=== PATIENT | female | born 1995 | race African-American/Black ===

== ENCOUNTER 2016-10-03 13:24 | Emergency (ER) | payer OTHER ==
[~2016-10-03] VITALS: Ht 172.7 cm; Wt 65.8 kg
[~2016-10-03 13:24] MED LIST: HYDR-971 PO; NAPR550T3 PO; PNV1TABL25 PO
[2016-10-03 13:45] VITALS: BP 117/36
--- NOTE | 2016-10-03 14:21 | PHYS DOC ---
Past Medical History Past Medical History: No Pertinent History Past Surgical History: No Surgical History Smoking: Less than 1pk/day Alcohol Use: None Drug Use: None Adult General Chief Complaint Chief Complaint: KNEE INJURY HPI HPI Patient is a 21 year old female who presents with left knee pain after fall 3 days ago. She states that she was going down the stairs, tripped, and fell down approximately 5 steps. She is ambulatory with pain. She denies any other injuries. Her PCP is Dr. Swanson. Review of Systems Review of Systems Constitutional: Denies fever or chills. [] Musculoskeletal: Denies back pain. Reports left knee pain. Integument: Denies rash or skin lesions. [] Neurologic: Denies headache, focal weakness or sensory changes. Denies loss of consciousness. Allergies Allergies Allergies Coded Allergies Type Severity Reaction Last Updated Verified No Known Drug Allergies 12/01/13 No Physical Exam Physical Exam Constitutional: Well developed, well nourished, no acute distress, non-toxic appearance. [] HENT: Normocephalic, atraumatic, oropharynx moist. [] Eyes: PERRLA, EOMI, conjunctiva normal, no discharge. [] Skin: Warm, dry, no erythema, no rash. There is no laceration, abrasion, ecchymosis, or other external sign of injury. Extremities: Posterior and medial left knee tenderness, ROM intact, no edema. Distal pulses equal bilaterally. Neurovascularly intact distally. Neurologic: Alert and oriented X 3, normal motor function, normal sensory function, no focal deficits noted. [] Psychologic: Affect normal, judgement normal, mood normal. [] Current Patient Data Vital Signs Vital Signs Date Time Temp Pulse Resp B/P Pulse Ox O2 Delivery O2 Flow Rate FiO2 10/03/16 13:45 99 86 16 117/36 99 Room Air 99.0 EKG EKG [] Radiology/Procedures Radiology/Procedures REASON: fall 3d ago PROCEDURE: KNEE LEFT 4V EXAM: Left knee, 3 views. HISTORY: Pain. COMPARISON: None. FINDINGS: Frontal, lateral and oblique views of the left knee are obtained. There is no fracture, dislocation or subluxation. No effusion is seen. IMPRESSION: No acute osseous finding. Course & Med Decision Making Course & Med Decision Making Pertinent Labs and Imaging studies reviewed. (See chart for details) The patient presents with left knee pain after falling 3 days ago. On exam, she has tenderness of the left posterior knee without swelling. She is neurovascularly intact. Xray does not show any acute abnormalities. She is discharged home with an Max wrap. She is given a prescription for Naproxen. She is provided with contact information for orthopedics for follow up. Return precautions were discussed. She verbalizes understanding and agrees with plan. Dragon Disclaimer Dragon Disclaimer This electronic medical record was generated, in whole or in part, using a voice recognition dictation system. Departure Departure Impression: Primary Impression: Knee pain, left Disposition: HOME, SELF-CARE Condition: STABLE Referrals: NAVJOT SWANSON MD (PCP) CAROL RUIZ MD Patient Instructions: Knee Pain, [id number], Knee Wraps (Elastic Bandage) and RICE Additional Instructions: Your xray did not show any broken bones or dislocations. Please wear the provided Max wrap as needed for support. Please follow up with the orthopedic doctor listed below if your pain continues. Return to the emergency department if you have any new or concerning symptoms. Scripts Naproxen (Naprosyn)500 Mg Tablet1 Tab PO BID #20 TAB Prov:HARRISON JARA 10/03/16 Problem Qualifiers Primary Impression: Knee pain, left Chronicity: acute Qualified Code: M25.562 - Pain in left knee HARRISON JARA Oct 03, 2016 14:20
--- NOTE | 2016-10-03 14:32 | RAD ---
EXAM: Left knee, 3 views. HISTORY: Pain. COMPARISON: None. FINDINGS: Frontal, lateral and oblique views of the left knee are obtained. There is no fracture, dislocation or subluxation. No effusion is seen. IMPRESSION: No acute osseous finding.
[2016-10-03] MEDS ORDERED: NAPR500T PO (15:25)
== END 2016-10-03 15:37 | disposition home or self-care (01) ==
LOC: ER 13:24
DX: M25.562 Pain in left knee (principal); F17.200 Nicotine dependence, unspecified, uncomplicated; W10.9XXA Fall (on) (from) unspecified stairs and steps, initial encounter; Y93.89 Activity, other specified; Y92.89 Other specified places as the place of occurrence of the external cause; Y99.8 Other external cause status
CPT/HCPCS: 73564; 99284

== ENCOUNTER 2016-10-30 15:46 | Emergency (ER) | payer OTHER ==
[~2016-10-30] VITALS: Ht 172.7 cm; Wt 65.8 kg
[~2016-10-30 15:46] MED LIST changes: +NAPR500T PO
[2016-10-30] MEDS ORDERED: IV NORMAL SALINE 1000ML BAG 1,000 ML IV SCH (16:02)
--- NOTE | 2016-10-30 16:27 | PHYS DOC ---
Past Medical History Past Medical History: No Pertinent History Past Surgical History: No Surgical History Alcohol Use: None Drug Use: None Adult General Chief Complaint Chief Complaint: SYNCOPE HPI HPI Patient is a 21 year old -Taj[place] female who presents with syncopal episode. She states she was at work she has any new drink much all day today and also started feeling dizzy and felt like she had tunnel vision and then passed out for a few seconds. She denies injuring herself. She says she felt somewhat nauseated but now she feels completely fine. She denies any fevers chills nausea vomiting shortness of breath or other concerns at this time. She states she's never had a syncopal episode before. Review of Systems Review of Systems Constitutional: Denies fever or chills [] Eyes: Denies change in visual acuity, redness, or eye pain [] HENT: Denies nasal congestion or sore throat [] Respiratory: Denies cough or shortness of breath [] Cardiovascular: No additional information not addressed in HPI [] GI: Denies abdominal pain, nausea, vomiting, bloody stools or diarrhea [] : Denies dysuria or hematuria [] Musculoskeletal: Denies back pain or joint pain [] Integument: Denies rash or skin lesions [] Neurologic: Denies headache, focal weakness or sensory changes [] Endocrine: Denies polyuria or polydipsia [] Current Medications Current Medications Current Medications Medications (Trade) Dose Ordered Sig/Leti Start Time Stop Time Status Last Admin Dose Admin Sodium Chloride (Iv Sodium Chloride 0.9% 1000ml Bag) 1,000 ml @ 1,000 mls/hr Q1H 10/30/16 16:02 10/30/16 17:01 DC 10/30/16 16:35 1,000 MLS/HR Allergies Allergies Allergies Coded Allergies Type Severity Reaction Last Updated Verified No Known Drug Allergies 12/01/13 No Physical Exam Physical Exam Constitutional: Well developed, well nourished, no acute distress, non-toxic appearance. [] HENT: Normocephalic, atraumatic, bilateral external ears normal, oropharynx moist, no oral exudates, nose normal. [] Eyes: PERRLA, EOMI, conjunctiva normal, no discharge. [] Neck: Normal range of motion, no tenderness, supple, no stridor. [] Cardiovascular:Heart rate regular rhythm, no murmur [] Lungs & Thorax: Bilateral breath sounds clear to auscultation [] Abdomen: Bowel sounds normal, soft, no tenderness, no masses, no pulsatile masses. [] Skin: Warm, dry, no erythema, no rash. [] Back: No tenderness, no CVA tenderness. [] Extremities: No tenderness, no cyanosis, no clubbing, ROM intact, no edema. [] Neurologic: Alert and oriented X 3, normal motor function, normal sensory function, no focal deficits noted. [] Psychologic: Affect normal, judgement normal, mood normal. [] Current Patient Data Vital Signs Vital Signs Date Time Temp Pulse Resp B/P Pulse Ox O2 Delivery O2 Flow Rate FiO2 10/30/16 16:46 85 18 160/117 100 Room Air 10/30/16 15:53 97.9 97.9 Lab Values Laboratory Tests Test 10/30/16 15:29 10/30/16 16:10 10/30/16 16:15 POC Urine HCG, Qualitative Hcg negative (Negative) Urine Collection Type Unknown Urine Color Yellow Urine Clarity Cloudy Urine pH 7.0 Urine Specific [place] 1.020 Urine Protein 100mg/dL (NEG-TRACE) Urine Glucose (UA) Negativemg/dL (NEG) Urine Ketones (Stick) Negativemg/dL (NEG) Urine Blood Negative (NEG) Urine Nitrite Negative (NEG) Urine Bilirubin Negative (NEG) Urine Urobilinogen Dipstick 1.0mg/dL (0.2 mg/dL) Urine Leukocyte Esterase Small (NEG) Urine RBC 0/HPF (0-2) Urine WBC 11-20/HPF (0-4) Urine Squamous Epithelial Cells Many/LPF Urine Bacteria Moderate/HPF (0-FEW) Urine Mucus Marked/LPF Urine Opiates Screen Neg (NEG) Urine Methadone Screen Neg (NEG) Urine Barbiturates Neg (NEG) Urine Phencyclidine Screen Neg (NEG) Urine Amphetamine/Methamphetamine Neg (NEG) Urine Benzodiazepines Screen Neg (NEG) Urine Cocaine Screen Neg (NEG) Urine Cannabinoids Screen Pos (NEG) Urine Ethyl Alcohol Neg (NEG) White Blood Count 6.9x10^3/uL (4.0-11.0) Red Blood Count 4.45x10^6/uL (3.50-5.40) Hemoglobin 13.9g/dL (12.0-15.5) Hematocrit 41.8% (36.0-47.0) Mean Corpuscular Volume 94fL (79-100) Mean Corpuscular Hemoglobin 31pg (25-35) Mean Corpuscular Hemoglobin Concent 33g/dL (31-37) Red Cell Distribution Width 14.7% (11.5-14.5) H Platelet Count 227x10^3/uL (140-400) Neutrophils (%) (Auto) 44% (31-73) Lymphocytes (%) (Auto) 48% (24-48) Monocytes (%) (Auto) 7% (0-9) Eosinophils (%) (Auto) 1% (0-3) Basophils (%) (Auto) 0% (0-3) Neutrophils # (Auto) 3.1x10^3uL (1.8-7.7) Lymphocytes # (Auto) 3.3x10^3/uL (1.0-4.8) Monocytes # (Auto) 0.5x10^3/uL (0.0-1.1) Eosinophils # (Auto) 0.1x10^3/uL (0.0-0.7) Basophils # (Auto) 0.0x10^3/uL (0.0-0.2) Magnesium Level 2.0mg/dL (1.8-2.4) Total Bilirubin 0.9mg/dL (0.2-1.0) Direct Bilirubin 0.2mg/dL (0.0-0.2) Aspartate Amino Transferase (AST) 17U/L (15-37) Alanine Aminotransferase (ALT) 22U/L (14-59) Alkaline Phosphatase 73U/L (46-116) Creatine Kinase 94U/L (26-192) Creatine Kinase MB (Mass) 0.7ng/mL (0.0-3.6) Creatine Kinase MB Relative Index 0.7% (0-4) Troponin I Quantitative < 0.017ng/mL (0.000-0.055) ZY-Had-Y-Type Natriuretic Peptide 19pg/mL (0-124) Total Protein 6.8g/dL (6.4-8.2) Albumin 3.6g/dL (3.4-5.0) Thyroid Stimulating Hormone (TSH) 1.707uIU/mL (0.358-3.74) Serum Test, Qualitative Negative (NEG) Laboratory Tests 10/30/16 16:15 EKG EKG EKG shows sinus rhythm with rate of [address] elevations or T-wave inversions, normal axis, QTC 44 ms, as interpreted by me. Radiology/Procedures Radiology/Procedures [facility] [address] [place] [address] IMAGING REPORT Signed PATIENT: KIERRA SCHUMACHER ACCOUNT: [id number] : 1995 LOCATION: ER AGE: 21 SEX: F EXAM STATUS: REG ER ORD. PHYSICIAN: JAMIE KOLB MD REASON: syncope/ PREG TEST PROCEDURE: PORTABLE CHEST 1V Exam: AP portable chest. History: Syncope today. Comparison: None. Findings: The heart and mediastinal structures are within normal limits for size. Lungs are without infiltrate. No pneumothorax or pleural effusion is appreciated. Impression: 1. No acute cardiopulmonary process. DICTATED and SIGNED BY: NEGAR LICEA MD DATE: 10/30/161655 CC: JAMIE KOLB MD; UNKNOWN PCP NAME ~ [] Impressions: Syncope Course & Med Decision Making Course & Med Decision Making Pertinent Labs and Imaging studies reviewed. (See chart for details) Labs, urine, ECG, EKG are nonacute. She didn't have any ectopy or any other irregular rhythms on the monitor while being observed within the department. She is being discharged home to follow-up with her primary care physician. Return precautions given she is agreeable to the plan, and being discharged in stable condition. Dragon Disclaimer Dragon Disclaimer This electronic medical record was generated, in whole or in part, using a voice recognition dictation system. Departure Departure Impression: Primary Impression: Syncope Disposition: 01 HOME, SELF-CARE Condition: STABLE Referrals: NAVJOT HENDERSON MD (PCP) Patient Instructions: Syncope, [id number] Additional Instructions: Your labs, EKG and workup in the emergency Department did not show any acute abnormalities. You will need to follow-up with her primary care physician. Return back to ER she developed shortness of breath, chest pain or other concerns. JAMIE KOLB MD Oct 30, 2016 16:27
[2016-10-30 16:38] LABS: BILIRUBIN,URINE NEGATIVE (NEG); GLUCOSE,URINE NEGATIVE (NEG); NITRITE,URINE NEGATIVE (NEG); PROTEIN,URINE 100 mg/dL (NEG-TRACE)
[2016-10-30 16:42] LABS: BASO % 0 % (0-3); EOS % 1 % (0-3); HEMATOCRIT 41.8 % (36.0-47.0); HEMOGLOBIN 13.9 g/dL (12.0-15.5); LYMPH # 3.3 x10^3/uL (1.0-4.8); LYMPH % 48 % (24-48); MEAN CORPUSCULAR HEMOGLOBIN 31 pg (25-35); MEAN CORPUSCULAR HGB CONC 33 g/dL (31-37); MEAN CORPUSCULAR VOLUME 94 fL (79-100); MONO % 7 % (0-9); NEUT % 44 % (31-73); PLATELET COUNT 227 x10^3/uL (140-400); RED BLOOD COUNT 4.45 x10^6/uL (3.50-5.40); RED CELL DISTRIBUTION WIDTH 14.7 % (11.5-14.5); WHITE BLOOD COUNT 6.9 x10^3/uL (4.0-11.0)
[2016-10-30 16:42] LABS: BARBITURATES NEG (NEG); BENZODIAZEPINES NEG (NEG); CANNABINOIDS POS (NEG); COCAINE NEG (NEG); METHADONE NEG (NEG); OPIATES NEG (NEG); PHENCYCLIDINE NEG (NEG)
[2016-10-30 16:43] LABS: ETHANOL, URINE NEG (NEG)
[2016-10-30 16:46] VITALS: BP 160/117
[2016-10-30 16:54] LABS: RBC,URINE 0 /HPF (0-2)
[2016-10-30 16:54] LABS: NEG OBC SER NEG; POS OBC SER POS
[2016-10-30 16:55] LABS: BACTERIA,URINE MODERATE /HPF (0-FEW); SQUAMOUS EPITHELIAL CELL,UR MANY /LPF
[2016-10-30 16:58] LABS: ALBUMIN 3.6 g/dL (3.4-5.0); DIRECT BILIRUBIN 0.2 mg/dL (0.0-0.2); TOTAL BILIRUBIN 0.9 mg/dL (0.2-1.0); TOTAL PROTEIN 6.8 g/dL (6.4-8.2)
--- NOTE | 2016-10-30 16:58 | RAD ---
Exam: AP portable chest. History: Syncope today. Comparison: None. Findings: The heart and mediastinal structures are within normal limits for size. Lungs are without infiltrate. No pneumothorax or pleural effusion is appreciated. Impression: 1. No acute cardiopulmonary process.
[2016-10-30 17:10] LABS: CKMB INDEX 0.7 % (0-4); CKMB MASS 0.7 ng/mL (0.0-3.6)
--- NOTE | 2016-10-30 18:56 | EKG ---
[facility] [address] [place] [address] Test Date: 2016-10-30 Test Time: 16:07:06 Pat Name: KIERRA SCHUMACHER Department: Room: Gender: F Drawing Instructor: : 1995 Requested By: JAMIE KOLB Order Number: [id number] Reading MD: Samuel Garcia Measurements Intervals [place] Rate: 74 P: 55 OK: 172 QRS: 60 QRSD: 74 T: 31 QT: 364 QTc: 404 Interpretive Statements SINUS RHYTHM Electronically Signed On 10-31-2016 8:36:12 CDT by Samuel Garcia
== END 2016-10-30 17:31 | disposition home or self-care (01) ==
LOC: ER 15:46
DX: R55 Syncope and collapse (principal); R11.0 Nausea; H53.489 Generalized contraction of visual field, unspecified eye
CPT/HCPCS: 36415; 71010; 80076; 80305; 81001; 82553; 83735; 83880; 84443; 84484; 84703; 85027; 87086; 93005; 96360; 99285; J7030; 81025; G0481

== ENCOUNTER 2017-06-19 18:07 | Emergency (ER) | payer OTHER ==
[~2017-06-19] VITALS: Ht 172.7 cm; Wt 59.0 kg
[~2017-06-19 18:07] MED LIST changes: +NAPR-677 PO; +NAPR-683 PO; -NAPR500T PO; -NAPR550T3 PO
--- NOTE | 2017-06-19 18:37 | PHYS DOC ---
Past Medical History Past Medical History: No Pertinent History Past Surgical History: No Surgical History Alcohol Use: None Drug Use: None Adult General Chief Complaint Chief Complaint: ABDOMINAL PAIN HPI HPI Patient is a 22 year old female with abdominal pain Pleasant 22-year-old female with abdominal pain for approximately 1 month duration. It is epigastric. It's worse after she eats. Does not radiate through the back. Sometimes she vomits her food afterwards. Currently she is not having any pain. She's not having any nausea. She denies any pain of the right upper quadrant. No pelvic pain. No vaginal bleeding or discharge. No other current symptoms. Past the pain is intermittent, worse with eating, moderate when present. None currently. Review of Systems Review of Systems Constitutional: Denies fever or chills Eyes: Denies change in visual acuity, redness, or eye pain HENT: Denies nasal congestion or sore throat Respiratory: Denies cough or shortness of breath Cardiovascular: No additional information not addressed in HPI GI: No vomiting or diarrhea recently : Denies dysuria or hematuria Musculoskeletal: Denies back pain or joint pain Integument: Denies rash or skin lesions Neurologic: Denies headache, focal weakness or sensory changes Endocrine: Denies polyuria or polydipsia All other systems were reviewed and found to be within normal limits, except as documented in this note. Allergies Allergies Allergies Coded Allergies Type Severity Reaction Last Updated Verified No Known Drug Allergies 12/01/13 No Physical Exam Physical Exam Constitutional: Well developed, well nourished, no acute distress, non-toxic appearance. HENT: Normocephalic, atraumatic, bilateral external ears normal, oropharynx moist, no oral exudates, nose normal. Eyes: PERRLA, EOMI, conjunctiva normal, no discharge. Neck: Normal range of motion, no tenderness, supple, no stridor. Cardiovascular:Heart rate regular rhythm, no murmur Lungs & Thorax: Bilateral breath sounds clear to auscultation Abdomen: Minimal epigastric tenderness to palpation; no RUQ pain. Skin: Warm, dry, no erythema, no rash. Back: No tenderness, no CVA tenderness. Extremities: No tenderness, no cyanosis, no clubbing, ROM intact, no edema. Neurologic: Alert and oriented X 3, normal motor function, normal sensory function, no focal deficits noted. Psychologic: Affect normal, judgement normal, mood normal. Current Patient Data Vital Signs Vital Signs Date Time Temp Pulse Resp B/P (MAP) Pulse Ox O2 Delivery O2 Flow Rate FiO2 06/19/17 21:30 82 117/55 (75) 98 Room Air 06/19/17 19:45 16 06/19/17 18:15 98.5 98.5 Lab Values Laboratory Tests Test 06/19/17 18:19 06/19/17 18:20 06/19/17 18:50 Urine Collection Type Unknown Urine Color Elidia Urine Clarity Clear Urine pH 6.0 Urine Specific [place] >=1.030 Urine Protein 30 mg/dL (NEG-TRACE) Urine Glucose (UA) Negative mg/dL (NEG) Urine Ketones (Stick) Negative mg/dL (NEG) Urine Blood Large (NEG) Urine Nitrite Negative (NEG) Urine Bilirubin Small (NEG) Urine Urobilinogen Dipstick 1.0 mg/dL (0.2 mg/dL) Urine Leukocyte Esterase Moderate (NEG) Urine RBC 3-5 /HPF (0-2) Urine WBC 11-20 /HPF (0-4) Urine Squamous Epithelial Cells Many /LPF Urine Bacteria Mod /HPF (0-FEW) Urine Mucus Marked /LPF POC Urine HCG, Qualitative Hcg negative (Negative) White Blood Count 8.0 x10^3/uL (4.0-11.0) Red Blood Count 4.28 x10^6/uL (3.50-5.40) Hemoglobin 13.8 g/dL (12.0-15.5) Hematocrit 40.8 % (36.0-47.0) Mean Corpuscular Volume 96 fL (79-100) Mean Corpuscular Hemoglobin 32 pg (25-35) Mean Corpuscular Hemoglobin Concent 34 g/dL (31-37) Red Cell Distribution Width 13.8 % (11.5-14.5) Platelet Count 261 x10^3/uL (140-400) Neutrophils (%) (Auto) 53 % (31-73) Lymphocytes (%) (Auto) 37 % (24-48) Monocytes (%) (Auto) 9 % (0-9) Eosinophils (%) (Auto) 1 % (0-3) Basophils (%) (Auto) 0 % (0-3) Neutrophils # (Auto) 4.2 x10^3uL (1.8-7.7) Lymphocytes # (Auto) 3.0 x10^3/uL (1.0-4.8) Monocytes # (Auto) 0.7 x10^3/uL (0.0-1.1) Eosinophils # (Auto) 0.1 x10^3/uL (0.0-0.7) Basophils # (Auto) 0.0 x10^3/uL (0.0-0.2) Sodium Level 141 mmol/L (136-145) Potassium Level 3.7 mmol/L (3.5-5.1) Chloride Level 103 mmol/L (98-107) Carbon Dioxide Level 27 mmol/L (21-32) Anion Gap 11 (6-14) Blood Urea Nitrogen 16 mg/dL (7-20) Creatinine 0.6 mg/dL (0.6-1.0) Estimated GFR (Cockcroft-Gault) 151.3 BUN/Creatinine Ratio 27 (6-20) H Glucose Level 103 mg/dL (70-99) H Calcium Level 8.6 mg/dL (8.5-10.1) Total Bilirubin 0.9 mg/dL (0.2-1.0) Aspartate Amino Transferase (AST) 13 U/L (15-37) L Alanine Aminotransferase (ALT) 21 U/L (14-59) Alkaline Phosphatase 69 U/L (46-116) Total Protein 7.2 g/dL (6.4-8.2) Albumin 3.6 g/dL (3.4-5.0) Albumin/Globulin Ratio 1.0 (1.0-1.7) Lipase 142 U/L (73-393) Laboratory Tests 06/19/17 18:50 Laboratory Tests 06/19/17 18:50 EKG EKG [] Radiology/Procedures Radiology/Procedures []PROCEDURE: ABDOMEN LTD Clinical History: Elevated liver enzymes. Technique: Sonographic examination of the right upper quadrant of the abdomen was performed and multiple static images were obtained. Comparison: none Findings: The majority of the liver is visualized and appears homogeneous. The common bile duct appears normal and measures 3 mm in diameter. The gallbladder is seen with a single 3 mm polyp but no stones wall thickening surrounding fluid or tenderness. The pancreas is not well visualized due to overlying bowel gas . The right kidney appears normal and measures 11 cm in length. Impression: No acute findings. Electronically signed by: John Barrow III, MD (06/19/2017 9:20 PM) [facility] Course & Med Decision Making Course & Med Decision Making Pertinent Labs and Imaging studies reviewed. (See chart for details) Symptoms are most consistent with gastritis. Labs are essentially normal. There are WBC in the urine but she has no symptoms of a UTI so I will not treat with antibiotics. I am awaiting U/S GB results. If negative i will ask that she call for an appointment with a primary care doctor for further testing and treat with a course of Prilosec. We did discuss that follow up is important and that she will require monitoring by a primary care doctor and possible further testing if symptoms do not improve.] Dx: abdominal pain. Dismissed in stable condition. Dragon Disclaimer Dragon Disclaimer This electronic medical record was generated, in whole or in part, using a voice recognition dictation system. Departure Departure Referrals: UNKNOWN PCP NAME (PCP) Scripts Omeprazole Magnesium (PRILOSEC OTC) 20 Mg Tablet.dr 1 TAB PO DAILY, #15 TAB 3 Refills Prov: KATIE JUNE MD 06/19/17 KATIE JUNE MD Jun 19, 2017 18:37
[2017-06-19 18:47] LABS: BILIRUBIN,URINE SMALL (NEG); GLUCOSE,URINE NEGATIVE (NEG); NITRITE,URINE NEGATIVE (NEG); PROTEIN,URINE 30 mg/dL (NEG-TRACE)
[2017-06-19 18:55] LABS: BACTERIA,URINE MOD /HPF (0-FEW); SQUAMOUS EPITHELIAL CELL,UR MANY /LPF
[2017-06-19 18:57] LABS: BASO % 0 % (0-3); EOS % 1 % (0-3); HEMATOCRIT 40.8 % (36.0-47.0); HEMOGLOBIN 13.8 g/dL (12.0-15.5); LYMPH % 37 % (24-48); MEAN CORPUSCULAR HEMOGLOBIN 32 pg (25-35); MEAN CORPUSCULAR HGB CONC 34 g/dL (31-37); MEAN CORPUSCULAR VOLUME 96 fL (79-100); MONO % 9 % (0-9); NEUT % 53 % (31-73); PLATELET COUNT 261 x10^3/uL (140-400); RED BLOOD COUNT 4.28 x10^6/uL (3.50-5.40); RED CELL DISTRIBUTION WIDTH 13.8 % (11.5-14.5)
[2017-06-19 19:06] LABS: CALCIUM 8.6 mg/dL (8.5-10.1); CREATININE 0.6 mg/dL (0.6-1.0); GFR 151.3; POTASSIUM 3.7 mmol/L (3.5-5.1)
[2017-06-19 19:12] LABS: ALBUMIN 3.6 g/dL (3.4-5.0); TOTAL BILIRUBIN 0.9 mg/dL (0.2-1.0); TOTAL PROTEIN 7.2 g/dL (6.4-8.2)
[2017-06-19] MEDS ORDERED: OMEP20TA63 PO (20:29)
--- NOTE | 2017-06-19 21:24 | RAD ---
Clinical History: Elevated liver enzymes. Technique: Sonographic examination of the right upper quadrant of the abdomen was performed and multiple static images were obtained. Comparison: none Findings: The majority of the liver is visualized and appears homogeneous. The common bile duct appears normal and measures 3 mm in diameter. The gallbladder is seen with a single 3 mm polyp but no stones wall thickening surrounding fluid or tenderness. The pancreas is not well visualized due to overlying bowel gas . The right kidney appears normal and measures 11 cm in length. Impression: No acute findings. Electronically signed by: John Barrow III, MD (06/19/2017 9:20 PM) [facility]
[2017-06-19 21:30] VITALS: BP 117/55
== END 2017-06-19 22:08 | disposition home or self-care (01) ==
LOC: ER 18:07
DX: R10.13 Epigastric pain (principal); R10.816 Epigastric abdominal tenderness; R11.10 Vomiting, unspecified
CPT/HCPCS: 36415; 76705; 80053; 81001; 81025; 83690; 85025; 99285-25